=== PATIENT | female | born 2005 | race Caucasian/White ===

== ENCOUNTER 2024-02-21 06:08 | Emergency (ER) | payer OTHER ==
[~2024-02-21] VITALS: Ht 157.5 cm; Wt 59.9 kg
[2024-02-21 06:10] VITALS: PULSE 89; RESP 20; TEMP 98.1; O2SAT 97
[2024-02-21] MEDS ORDERED: FLUORESCEIN SOD(OPTH) 1 MG STRP ONE (06:20)
[2024-02-21] MEDS: FLUORESCEIN SOD(OPTH) 1 MG STRP OP ONE (06:28)
[2024-02-21] MEDS: PROPARACAINE HCL 0.5% OP SOLN 15 ML BTL OP ONE (06:28)
== END 2024-02-21 06:38 | disposition home or self-care (01) ==
LOC: ER 06:11
DX: H57.12 Ocular pain, left eye (principal); H10.9 Unspecified conjunctivitis; E11.9 Type 2 diabetes mellitus without complications
CPT/HCPCS: 99283